=== PATIENT | male | born 1975 | race African-American/Black ===

== ENCOUNTER 2021-05-09 20:30 | Emergency (ER) | payer SELFPAY ==
[2021-05-09] MEDS ORDERED: Ibuprofen 600 MG TAB ONE (20:52)
== END 2021-05-09 20:55 ==
LOC: MADERS 20:30
DX: T75.4XXA Electrocution, initial encounter (principal); S09.90XA Unspecified injury of head, initial encounter; W22.8XXA Striking against or struck by other objects, initial encounter
CPT/HCPCS: 99283